=== PATIENT | male | born 1955 | race Caucasian/White ===

== ENCOUNTER 2017-02-15 18:31 | Emergency (ER) | payer OTHER ==
[~2017-02-15] VITALS: Ht 180.3 cm; Wt 108.1 kg
[~2017-02-15 18:31] MED LIST: ACTOS45 MG PO; ALLOPURINOL100 MG PO; ALLOPURINOL300 MG PO; AUGMENTIN875 MG PO; B/P MEDS; BYSTOLIC20 MG PO; CARVEDILOL25 MG PO; CLEOCIN300 MG PO; ESCITALOPRAM OX10 MG PO; FUROSEMIDE40 MG PO; HYDROCHLOROTH12.5 M1 PO; HYDROCHLOROTHIA25 MG PO; HYDROCODON-ACE1 EAC7 PO; JANUVIA25 M1 PO; LANTUS (UNITS)1 UNIT IV/SC; LANTUS 3 M100 UNITS1 SC; LEVAQUIN750 MG PO; LISINOPRIL40 MG PO; PHENERGAN-CODE120 ML PO; PREDNISONE10 MG PO; PREDNISONE20 MG PO; TYLENOL WITH C1 EACH PO; ZESTRIL,PRINIVI40 MG PO
[2017-02-15 19:09] LABS: MCH 31.6 PG (29.0-34.0); MCHC 34.2 G/DL (30.0-36.0); MCV 92.2 FL (86-99); MEAN PLAT.VOLUME 9.1 uM^3 (9.0-12.4); PLATELET COUNT 238 K/uL (156-360); RBC DIS.WIDTH-CV 13.9 % (11.8-14.6); RBC DIS.WIDTH-SD 46.9 % (39-53); RED BLOOD COUNT 4.12 M/uL (4.00-5.50); WHITE BLOOD COUNT 12.8 K/uL (4.1-10.2)
[2017-02-15] MEDS ORDERED: PREDNISONE20 MG PO (19:19)
[2017-02-15] MEDS ORDERED: [UNRECOGNIZED DRUG - OTHER] TP (19:19)
[2017-02-15] MEDS ORDERED: VALTREX1000 MG PO (19:19)
[2017-02-15 19:20] LABS: CHLORIDE 109 mEq/L (99-109); POTASSIUM 3.3 mEq/L (3.7-5.4); SODIUM 142 mEq/L (136-147)
[2017-02-15 19:21] LABS: GLUCOSE 54 mg/dL (70-99)
[2017-02-15 19:22] LABS: INTER. NORMALIZED RATIO 1.1; PROTHROMBIN TIME 10.9 (9.2-11.2); PTT 31.6 (25-32)
[2017-02-15 19:23] LABS: ANION GAP 9 MEQ/L (2-14)
[2017-02-15 19:25] LABS: GFR ESTIMATE (CALCULATED) 54 mL/min/
[2017-02-15 19:26] LABS: UREA NITROGEN (BUN) 35 mg/dL (9-23)
[2017-02-15 19:30] LABS: TROP-I INTERPRETATION NEGATIVE; TROPONIN-I 0.05 ng/mL (0.0-0.30)
[2017-02-15 19:50] VITALS: BP 166/88
== END 2017-02-15 19:51 | disposition home or self-care (01) ==
LOC: EME 18:31
PROVIDERS: Emergency Medicine
DX: G51.0 Bell's palsy (principal); F32.9 Major depressive disorder, single episode, unspecified; I48.91 Unspecified atrial fibrillation; I10 Essential (primary) hypertension; E11.9 Type 2 diabetes mellitus without complications; Z79.4 Long term (current) use of insulin
CPT/HCPCS: 80048; 84484; 85027; 85610; 85730; 99281; 99284; J7512

== ENCOUNTER → 2018-05-04 | Outpatient (CLI) | payer OTHER ==
[~2018-05-04] MED LIST changes: +TOPROL XL50 MG PO; +VALTREX1000 MG PO; +[UNRECOGNIZED DRUG - OTHER] TP
[2018-05-04 08:42] LABS: TYPE OF FLUID PERITONEAL
[2018-05-04 09:19] LABS: APPEARANCE CLOUDY; BODY FLUID RBC'S < 1000 /MM^3 (0-100); BODY FLUID WBC'S 387 /MM^3 (0-500)
[2018-05-04 09:22] LABS: BODY FLUID EOSINOPHILS 0 % (0-25); MONONUCLEAR WBC'S 88 %; POLYNUCLEAR WBC'S 12 % (0-25)
== END | disposition home or self-care (01) ==
LOC: RAD 07:08
PROVIDERS: Internal Medicine Gastroenterology
PROC: 0W9G3ZZ Drainage of Peritoneal Cavity, Percutaneous Approach (ICD-10-PCS; principal; 2018-05-04)
DX: R18.8 Other ascites (principal)
CPT/HCPCS: 49083; 87205; 88108; 89051

== ENCOUNTER 2018-05-10 13:08 | Inpatient (IN) | payer OTHER ==
[~2018-05-10] VITALS: Ht 180.3 cm; Wt 107.3 kg
[~2018-05-10 13:08] MED LIST changes: +TOPROL XL100 MG PO; -TOPROL XL50 MG PO
[2018-05-10 14:52] LABS: BASOPHIL (%) 0.6 % (0-1); BASOPHIL COUNT 0.1 K/uL (0-0.1); EOSINOPHIL (%) 1.5 % (0-5); EOSINOPHIL COUNT 0.2 K/uL (0-0.3); HEMATOCRIT 32.4 % (38.0-50.0); HEMOGLOBIN 11.3 G/DL (12.5-16.6); IMMATURE GRANULOCYTE (%) 0.6 % (0.0-0.7); LYMPHOCYTE (%) 6.1 % (15-42); LYMPHOCYTE COUNT 0.6 K/uL (1.0-2.8); MCH 32.7 PG (29.0-34.0); MCHC 34.9 G/DL (30.0-36.0); MCV 93.6 FL (86-99); MONOCYTE (%) 4.9 % (3-12); MONOCYTE COUNT 0.5 K/uL (0-0.8); NEUTROPHIL (%) 86.3 % (45-76); NEUTROPHIL COUNT 8.4 K/uL (1.8-6.4); PLATELET COUNT 187 K/uL (156-360); RBC DIS.WIDTH-CV 14.5 % (11.8-14.6); RBC DIS.WIDTH-SD 49.3 % (39-53); RED BLOOD COUNT 3.46 M/uL (4.00-5.50); WHITE BLOOD COUNT 9.7 K/uL (4.1-10.2)
[2018-05-10 15:02] LABS: ALBUMIN 2.8 g/dL (3.2-4.8); CHLORIDE 107 mEq/L (99-109); POTASSIUM 3.7 mEq/L (3.7-5.4); SODIUM 139 mEq/L (136-147)
[2018-05-10 15:05] LABS: GLUCOSE 139 mg/dL (70-99); TOTAL PROTEIN 5.7 g/dL (6.4-8.3)
[2018-05-10 15:07] LABS: TOTAL BILIRUBIN 0.8 mg/dL (0.0-1.0)
[2018-05-10 15:08] LABS: ALKALINE PHOSPHATASE 175 IU/L (3-129); INTER. NORMALIZED RATIO 1.1
[2018-05-10 15:09] LABS: GFR ESTIMATE (CALCULATED) 36 mL/min/ (58.99-99999)
[2018-05-10 15:10] LABS: AST (GOT) 21 IU/L (2-34); DIRECT BILIRUBIN 0.3 mg/dL (0.0-0.3); PTT 29.7 SEC (25-37); UREA NITROGEN (BUN) 28 mg/dL (9-23)
[2018-05-10 15:11] LABS: ALT (GPT) 14 IU/L (3-49)
[2018-05-10 15:12] LABS: LIPASE 13 U/L (1.0-51.0)
[2018-05-10 15:14] LABS: TROP-I INTERPRETATION NEGATIVE; TROPONIN-I 0.02 ng/mL (0.0-0.30)
[2018-05-10 15:56] LABS: APPEARANCE CLEAR ((CLEAR)); BILIRUBIN NEGATIVE; BLOOD SMALL; COLOR YELLOW ((YELLOW)); GLUCOSE (STRIP) 50; KETONES NEGATIVE; LEUKOCYTES NEGATIVE; NITRITE NEGATIVE; PROTEIN (STRIP) 100; SPECIFIC GRAVITY 1.011 (1.000-1.030); UROBILINOGEN 0.2 MG/DL (0.2-1.0)
[2018-05-10 16:03] LABS: BACTERIA NONE SEEN /HPF; EPITHELIAL CELLS NONE SEEN /HPF; MUCUS NONE SEEN /LPF; RED BLOOD CELLS 0-5 /HPF (0-5); UCUL ADDED? NO; WHITE BLOOD CELLS 0-5 /HPF (0-5)
[2018-05-10] MEDS ORDERED: APRESOLINE25 MG PO (17:41)
[2018-05-10] MEDS ORDERED: LIPITOR20 MG PO (17:42)
[2018-05-10] MEDS ORDERED: [UNRECOGNIZED DRUG - REMARK] PO (17:45)
[2018-05-10 19:59] VITALS: BP 178/88
[2018-05-10 23:54] VITALS: BP 169/90
[2018-05-11 01:55] VITALS: BP 151/79
[2018-05-11 03:42] VITALS: BP 160/78
[2018-05-11 05:57] VITALS: BP 118/65
[2018-05-11 06:35] LABS: HEMATOCRIT 32.9 % (38.0-50.0); HEMOGLOBIN 11.2 G/DL (12.5-16.6); MCH 32.4 PG (29.0-34.0); MCV 95.1 FL (86-99); PLATELET COUNT 215 K/uL (156-360); RBC DIS.WIDTH-CV 14.8 % (11.8-14.6); RBC DIS.WIDTH-SD 51.6 % (39-53); RED BLOOD COUNT 3.46 M/uL (4.00-5.50); WHITE BLOOD COUNT 10.8 K/uL (4.1-10.2)
[2018-05-11 06:38] LABS: ALBUMIN 2.4 G/DL (3.2-4.8); ALKALINE PHOSPHATASE 133 IU/L (3-129); ALT (GPT) 11 IU/L (3-49); AST (GOT) 19 IU/L (2-34); CHLORIDE 104 MEQ/L (99-109); GFR ESTIMATE (CALCULATED) 36 mL/min/ (58.99-99999); GLUCOSE 126 mg/dL (70-99); HDL CHOLESTEROL 45 MG/DL (Desirable>=40); LDL CHOLESTEROL 28 mg/dL (Desirable<100); NON-HDL CHOLESTEROL 46 mg/dL (Desirable<160); POTASSIUM 3.6 MEQ/L (3.7-5.4); SODIUM 142 MEQ/L (136-147); TOTAL BILIRUBIN 0.8 MG/DL (0.0-1.0); TOTAL CHOLESTEROL 91 mg/dL (Desirable<200); TOTAL PROTEIN 4.8 G/DL (6.4-8.3); TRIGLYCERIDES 90 MG/DL (Normal: <150); UREA NITROGEN (BUN) 28 mg/dL (9-23)
[2018-05-11 07:00] VITALS: BP 155/84
[2018-05-11 10:51] LABS: HEPATITIS B SURFACE ANTIGEN Nonreactive; HEPATITIS C ANTIBODY Nonreactive
[2018-05-11 10:52] LABS: ANTI-HEPATITIS A VIRUS (IGM) Nonreactive
[2018-05-11 10:53] LABS: ANTI-HEPATITIS B CORE (IGM) Nonreactive
[2018-05-11 12:00] VITALS: BP 157/76
[2018-05-11 16:19] VITALS: BP 128/72
[2018-05-12 01:01] LABS: TROP-I INTERPRETATION NEGATIVE; TROPONIN-I 0.02 ng/mL (0.0-0.30)
[2018-05-12 01:41] VITALS: BP 132/74
[2018-05-12 04:45] VITALS: BP 136/65
[2018-05-12 07:08] VITALS: BP 138/77
[2018-05-12 07:59] LABS: BASOPHIL (%) 0.8 % (0-1); BASOPHIL COUNT 0.1 K/uL (0-0.1); EOSINOPHIL (%) 3.6 % (0-5); EOSINOPHIL COUNT 0.3 K/uL (0-0.3); HEMOGLOBIN 11.2 G/DL (12.5-16.6); IMMATURE GRANULOCYTE (%) 0.5 % (0.0-0.7); LYMPHOCYTE (%) 16.4 % (15-42); LYMPHOCYTE COUNT 1.6 K/uL (1.0-2.8); MCH 32.4 PG (29.0-34.0); MCHC 33.9 G/DL (30.0-36.0); MCV 95.4 FL (86-99); MONOCYTE (%) 8.2 % (3-12); MONOCYTE COUNT 0.8 K/uL (0-0.8); NEUTROPHIL (%) 70.5 % (45-76); NEUTROPHIL COUNT 6.7 K/uL (1.8-6.4); PLATELET COUNT 197 K/uL (156-360); RBC DIS.WIDTH-CV 14.6 % (11.8-14.6); RBC DIS.WIDTH-SD 51.3 % (39-53); RED BLOOD COUNT 3.46 M/uL (4.00-5.50); WHITE BLOOD COUNT 9.5 K/uL (4.1-10.2)
[2018-05-12 08:23] LABS: TROP-I INTERPRETATION NEGATIVE; TROPONIN-I 0.03 ng/mL (0.0-0.30)
[2018-05-12 08:29] LABS: CHLORIDE 104 MEQ/L (99-109); CREATININE 2.3 MG/DL (0.6-1.3); GFR ESTIMATE (CALCULATED) 31 mL/min/ (58.99-99999); GLUCOSE 110 mg/dL (70-99); POTASSIUM 3.9 MEQ/L (3.7-5.4); SODIUM 139 MEQ/L (136-147); UREA NITROGEN (BUN) 32 mg/dL (9-23)
[2018-05-12 12:00] VITALS: BP 156/77
[2018-05-12] MEDS ORDERED: OMEPRAZOLE40 M1 PO (13:46)
[2018-05-12] MEDS ORDERED: ANTIVERT25 MG PO (13:48)
== END 2018-05-12 15:20 | disposition home or self-care (01) | DRG 433 ==
LOC: EME 13:08 → 2EAST 16:37 → EDOF 16:37 → ENRESERV 16:48 → 2EAST 19:26
PROVIDERS: Emergency Medicine; Family Medicine
PROC: 0W9G3ZZ Drainage of Peritoneal Cavity, Percutaneous Approach (ICD-10-PCS; principal; 2018-05-12)
DX: K74.60 Unspecified cirrhosis of liver (principal); R18.8 Other ascites; I48.0 Paroxysmal atrial fibrillation; I12.9 Hypertensive chronic kidney disease with stage 1 through stage 4 chronic kidney disease, or unspecified chronic kidney disease; E11.40 Type 2 diabetes mellitus with diabetic neuropathy, unspecified; K21.9 Gastro-esophageal reflux disease without esophagitis; E11.65 Type 2 diabetes mellitus with hyperglycemia; N18.3 Chronic kidney disease, stage 3 (moderate); M10.9 Gout, unspecified; E78.5 Hyperlipidemia, unspecified; E11.22 Type 2 diabetes mellitus with diabetic chronic kidney disease; Z79.4 Long term (current) use of insulin; R29.6 Repeated falls; K76.0 Fatty (change of) liver, not elsewhere classified; E66.01 Morbid (severe) obesity due to excess calories; Z68.32 Body mass index [BMI] 32.0-32.9, adult
CPT/HCPCS: 49083; 70450; 71045; 80048; 80053; 80061; 80074; 80076; 81003; 82140; 82948; 83690; 83880; 84484; 85025; 85027; 85610; 85730; 86038; 86430; 93005; 99281; 99285; J1940; J2270; J2405

== ENCOUNTER → 2018-05-29 | Outpatient (CLI) | payer OTHER ==
[~2018-05-29] MED LIST changes: +ANTIVERT25 MG PO; +APRESOLINE25 MG PO; +LIPITOR20 MG PO; +OMEPRAZOLE40 M1 PO; +[UNRECOGNIZED DRUG - REMARK] PO
== END | disposition home or self-care (01) ==
LOC: RAD 09:06
PROC: 0W9G3ZZ Drainage of Peritoneal Cavity, Percutaneous Approach (ICD-10-PCS; principal; 2018-05-29)
DX: R18.8 Other ascites (principal)
CPT/HCPCS: 49083; P9047